=== PATIENT | female | born 1990 | race American Indian/Alaskan Native ===

== ENCOUNTER 2022-01-18 12:21 | Outpatient (CLI) | payer MEDICAID ==
[2022-01-18 18:22] VITALS: BP 131/81
== END 2022-01-18 15:56 | disposition home or self-care (01) ==
LOC: LAB 12:21 → APU 15:28 → LAB 15:56
PROVIDERS: ATTEND Obstetrics & Gynecology
DX: O26.893 Other specified pregnancy related conditions, third trimester (principal); O48.0 Post-term pregnancy; Z67.21 Type B blood, Rh negative; Z3A.40 40 weeks gestation of pregnancy
CPT/HCPCS: 86850; 86900; 86901; 96372; J2790